=== PATIENT | female | born 1960 | race Caucasian/White ===

== ENCOUNTER 2021-08-24 11:45 | Outpatient (REF) | payer BC, SELFPAY ==
[2021-08-24 21:49] LABS: Anion Gap 14.8 mmol/L (3-11); BUN 10 mg/dL (7-18); CO2 26.2 mmol/L (21.0-32.0); CREATININE 0.7 mg/dL (0.55-1.02); Calcium 8.9 mg/dL (8.5-10.1); Chloride 101 mmol/L (98-107); Glucose 72 mg/dL (74-106); Potassium 3.3 mmol/L (3.5-5.1); Sodium 142 mmol/L (136-145)
== END 2021-08-24 11:46 | disposition home or self-care (01) ==
LOC: NCHCN 11:45
PROVIDERS: PCP Internal Medicine; Visit Provider Physician Assistant
DX: I10 Essential (primary) hypertension (principal)
CPT/HCPCS: 80048

== ENCOUNTER 2022-09-22 16:19 | Outpatient (REF) | payer BC, SELFPAY ==
[2022-09-22 19:19] LABS: INR 1.1 (0.9-1.1); Prothrombin Time 11.3 sec (9.3-11.0)
[2022-09-22 19:50] LABS: Folate 9.4 ng/mL (8.6-20.0); Vitamin B12 591 pg/mL (193-986)
[2022-09-25 09:58] LABS: Thyroperoxidase Antibody 47 U/mL (<=60)
[2022-09-28 23:49] LABS: Specimen WB Whole Blood
== END 2022-09-22 16:20 | disposition home or self-care (01) ==
LOC: NCHCN 16:19
PROVIDERS: PCP Internal Medicine; Visit Provider Internal Medicine
DX: R94.6 Abnormal results of thyroid function studies (principal); R78.89 Finding of other specified substances, not normally found in blood; R74.8 Abnormal levels of other serum enzymes; R23.3 Spontaneous ecchymoses
CPT/HCPCS: 81256; 82607; 82746; 85610; 86376

== ENCOUNTER 2022-10-12 11:53 | Outpatient (REF) | payer BC, SELFPAY ==
--- NOTE | 2022-10-12 11:30 | PAPFT_PTH ---
PATIENT: Maggy Bonilla LOC: [facility]#:[id number] AGE/SX: 62/F ROOM: RE10/12/[address]: Lydia Hoover : 1960 BED: DIS: 10/12/2022 SPEC #: [id number] RECD: 10/13/22 13:24 STATUS: ELPIDIO RELorenzo #: [id number] TONI: 10/12/22 11:[address]: Lydia Hoover DEPT: [facility] Cytology RECD BY: Lory Hilton ENTERED: 10/13/22 13:24 SP TYPE: PAPFT OTHR DR: Juwan Grossman Tissues: 1 - CX/ENDOCX FOR PAP SMEARS Procedures: PAP THIN PREP/[facility] Screening HPV DNA PROBE Comments: [id number]
== END 2022-10-12 11:54 | disposition home or self-care (01) ==
LOC: NCHCN 11:53
PROVIDERS: PCP Internal Medicine; Visit Provider Physician Assistant
DX: Z12.4 Encounter for screening for malignant neoplasm of cervix (principal); Z11.51 Encounter for screening for human papillomavirus (HPV)
CPT/HCPCS: 88142; 87624

== ENCOUNTER 2022-10-26 16:09 | Outpatient (REF) | payer BC, SELFPAY ==
[2022-10-26 19:36] LABS: ALT 68 U/L (14-59); AST 127 U/L (15-37); Albumin 3.6 g/dL (3.4-5.0); Alkaline Phosphatase 174 U/L (46-116); Anion Gap 7.9 mmol/L (3-11); BUN 18 mg/dL (7-18); Bilirubin, Total 0.8 mg/dL (0.2-1.0); CO2 28.1 mmol/L (21.0-32.0); CREATININE 1.1 mg/dL (0.55-1.02); Calcium 9.7 mg/dL (8.5-10.1); Chloride 102 mmol/L (98-107); Estimated GFR 56.81 (mL/min/1.73m2); Glucose 109 mg/dL (74-106); Lipase 139 U/L (73-393); Potassium 3.9 mmol/L (3.5-5.1); Sodium 138 mmol/L (136-145); TSH 3.74 uIU/mL (0.36-3.74); Total Protein 7.9 g/dL (6.4-8.2)
[2022-10-26 20:00] LABS: Ferritin 515 ng/mL (8-252)
== END 2022-10-26 16:10 | disposition home or self-care (01) ==
LOC: NCHCN 16:09
PROVIDERS: PCP Internal Medicine; Visit Provider Internal Medicine
DX: K70.10 Alcoholic hepatitis without ascites (principal); I10 Essential (primary) hypertension; E78.5 Hyperlipidemia, unspecified
CPT/HCPCS: 80053; 83690; 82728; 84443

== ENCOUNTER 2025-02-10 12:42 | Outpatient (REF) | payer BC, SELFPAY | END 2025-02-10 12:43 | disposition home or self-care (01) | LOC: NCHCN 12:42 | PROVIDERS: PCP Internal Medicine; Visit Provider Physician Assistant | DX: E87.6 Hypokalemia (principal) | CPT/HCPCS: 84132 ==

== ENCOUNTER 2025-04-23 13:02 | Outpatient (REF) | payer BC, SELFPAY ==
[2025-04-23 20:01] LABS: Abs Immature Grans 0.08 10^3/uL (0.0-0.06); Absolute Basophil Count 0.08 10^3/uL (0.0-0.2); Absolute Eosinophil Count 0.23 10^3/uL (0.0-0.7); Absolute Lymphocyte Count 1.76 10^3/uL (1.2-3.4); Absolute Neutrophil Count 10.06 10^3/uL (1.2-6.7); Basophils % 0.6 %; Eosinophils % 1.7 %; HGB 10.5 g/dL (11.2-15.7); Immature Grans % 0.6 %; MCH 39.6 pg (27.0-33.0); MCHC 37.5 % (32.0-36.0); MCV 106 fL (80-95); MPV 9.4 fL (8.0-11.0); Monocytes % 9.6 %; Neutrophils % 74.5 %; Platelet Count 498 10^3/uL (130-400); RBC 2.65 10^6/uL (3.93-5.22); RDW 13.8 % (11.7-14.6); WBC 13.51 10^3/uL (4.4-10.8)
[2025-04-23 20:16] LABS: Diff Comment RBC Morph Reviewed
[2025-04-23 20:17] LABS: Macrocytosis 1+
[2025-04-23 20:23] LABS: ALT 16 U/L (14-59); AST 35 U/L (15-37); Albumin 2.9 g/dL (3.4-5.0); Alkaline Phosphatase 226 U/L (46-116); Anion Gap 7.1 mmol/L (3-11); BUN 9 mg/dL (7-18); Bilirubin, Total 0.7 mg/dL (0.2-1.0); C-Reactive Protein 8.93 mg/dL (<or=0.5); CO2 28.9 mmol/L (21.0-32.0); CREATININE 0.7 mg/dL (0.55-1.02); Calcium 9.9 mg/dL (8.5-10.1); Chloride 101 mmol/L (98-107); Estimated GFR 95.92 (mL/min/1.73m2); Glucose 99 mg/dL (74-106); Magnesium 1.2 mg/dL (1.8-2.4); Potassium 3.8 mmol/L (3.5-5.1); Sodium 137 mmol/L (136-145); Total Protein 7.2 g/dL (6.4-8.2)
== END 2025-04-23 13:03 | disposition home or self-care (01) ==
LOC: NCHCN 13:02
PROVIDERS: PCP Internal Medicine; Visit Provider Physician Assistant
DX: D64.9 Anemia, unspecified (principal); R01.2 Other cardiac sounds
CPT/HCPCS: 80053; 83735; 85025; 86140

== ENCOUNTER 2025-06-25 12:18 | Outpatient (REF) | payer BC, SELFPAY ==
[2025-06-25 19:02] LABS: Abs Immature Grans 0.02 10^3/uL (0.0-0.06); HCT 37.9 % (36.0-46.0); HGB 13.6 g/dL (11.2-15.7); Immature Grans % 0.4 %; MCH 37.0 pg (27.0-33.0); MCHC 35.9 % (32.0-36.0); MCV 103 fL (80-95); MPV 9.6 fL (8.0-11.0); Platelet Count 223 10^3/uL (130-400); RBC 3.68 10^6/uL (3.93-5.22); RDW 13.4 % (11.7-14.6); RDW-SD 49.5 fL; WBC 4.61 10^3/uL (4.4-10.8)
[2025-06-25 19:06] LABS: Iron 169 ug/dL (50-170); Total Iron Binding Capacity 317 ug/dL (250-450); Transferrin Sat 53 % (15-50)
[2025-06-25 19:20] LABS: Ferritin 191 ng/mL (8-252); Magnesium 1.6 mg/dL (1.8-2.4); TSH (W/Ref FT4) 0.63 uIU/mL (0.36-3.74)
[2025-06-25 19:31] LABS: C-Reactive Protein < 0.50 mg/dL (<or=0.5)
== END 2025-06-25 12:19 | disposition home or self-care (01) ==
LOC: NCHCN 12:18
PROVIDERS: PCP Internal Medicine; Visit Provider Physician Assistant
DX: R94.6 Abnormal results of thyroid function studies (principal); E83.42 Hypomagnesemia; Z86.79 Personal history of other diseases of the circulatory system; D64.9 Anemia, unspecified
CPT/HCPCS: 82728; 83540; 83550; 83735; 84443; 85025; 86140